=== PATIENT | female | born 1970 | race Caucasian/White ===

== ENCOUNTER → 2023-03-28 14:07 | Outpatient (CLI) | payer OTHER, SELFPAY ==
--- NOTE | 2023-03-28 14:12 | DI.US.S_ITS ---
PROCEDURE: US PELVIC COMPLETE INDICATIONS: PERIMENOPAUSAL. IRREGULAR BLEEDING. TECHNIQUE: Real-time scanning was performed of the pelvic organs, with image documentation. Additional endovaginal scanning was necessary due to incomplete visualization of the adnexal and endometrial structures by transabdominal scanning. COMPARISON: None available at the time of dictation. FINDINGS: Uterus: Uterus is anteverted and normal in size at 7.4 x 4.8 x 3.9 cm. The myometrium is heterogeneous. The endometrium measures 5.0 mm combined thickness. Ovaries: The right ovary measures 2.9 x 1.2 x 1.3 cm, with a calculated ovarian volume of 2.3 cc. The left ovary measures 3.2 x 1.1 x 1.1 cm, with a calculated ovarian volume of 2.0 cc. The ovaries have a normal sonographic appearance. Less than 12 follicles can be seen in each ovary as expected. No adnexal masses are seen. Other: No pathologic free abdominal or pelvic fluid. IMPRESSION: Slightly heterogeneous appearance of the uterus Endometrial stripe thickness of 5 mm. No definite findings to explain patient's symptomology We strive to produce accurate, complete, and clear reports of imaging services. To assist us in improving patient care, this report was composed using standard report templates and voice recognition software. Therefore, it may contain abnormal punctuation, insertions and/or omissions. Occasional wrong-word or sound-alike substitutions may occur. Though we review the report and make efforts to correct it, we do recommend that the report be read carefully in proper context to recognize any text inaccuracies. Dictated by: Shade Yeung M.D. on 03/29/2023 at 7:27 Approved by: Shade Yeung M.D. on 03/29/2023 at 7:35
== END ==
LOC: US 14:09
PROVIDERS: PCP Nurse Practitioner; Referring Provider Obstetrics & Gynecology; Visit Provider Obstetrics & Gynecology
DX: N92.6 Irregular menstruation, unspecified (principal); N95.1 Menopausal and female climacteric states
CPT/HCPCS: 76830; 76856

== ENCOUNTER → 2023-06-14 16:09 | Outpatient (CLI) | payer OTHER, SELFPAY ==
[2023-06-14 17:15] LABS: Cancer Antigen 125 < 5.5 U/mL (0-35)
== END ==
PROVIDERS: PCP Nurse Practitioner; Referring Provider Obstetrics & Gynecology; Visit Provider Obstetrics & Gynecology
DX: N95.1 Menopausal and female climacteric states (principal)
CPT/HCPCS: 36415; 86304